=== PATIENT | female | born 1945 | race Caucasian/White ===

== ENCOUNTER 2021-03-01 19:00 | Inpatient (IN) | payer MEDICARE, OTHER ==
[~2021-03-01] VITALS: Ht 162.6 cm; Wt 74.8 kg
--- NOTE | 2021-03-01 19:06 | NUR ---
PT AAOX4. AMBULATORY WITH STEADY GAIT. HA BROWN FROM [facility] PRIOR TO GPS ADMISSION. PT CURRENTLY ON A HOLD SINCE [phone] FOR MAKING VERBAL THREATS TOWARDS HER DOCTOR. PT PLACED IN GOWN,ON MONITOR, AND PULSE OX. BELONINGS PLACED IN LOCKER. PT REFUSING BLOOD WORK.
--- NOTE | 2021-03-01 19:34 | NUR ---
REFUSING EKG, ER MD AWARE. REFUSING TO ANSWER QUESTIONS.
--- NOTE | 2021-03-01 19:34 | NUR ---
COVID SWABBED, SENT TO LAB. REFUSING BLOOD WORK AND URINE. ER AWARE.
--- NOTE | 2021-03-01 20:03 | NUR ---
LAB CALLED REGARDING NEGATIVE COVID RESULT.
--- NOTE | 2021-03-01 20:51 | NUR ---
REPORT GIVEN TO LILIYA PIERRE FOR NEGRO
[2021-03-01 21:20] VITALS: BP 157/76
[2021-03-01] MEDS ORDERED: ONDANSETRON HCL/PF 4 MG/2 ML VIAL IVP PRN (21:30)
[2021-03-01] MEDS ORDERED: MAG HYDROX/AL HYDROX/SIMETH 30 ML UDC PO PRN (21:30)
[2021-03-01] MEDS ORDERED: ZOLPIDEM TARTRATE 5 MG TABLET PO PRN (21:30)
[2021-03-01] MEDS ORDERED: MAGNESIUM HYDROXIDE 30 ML UDC PO PRN (21:30)
[2021-03-01] MEDS ORDERED: ACETAMINOPHEN 325 MG TABLET PO PRN (21:30)
[2021-03-01] MEDS ORDERED: Z GUARD REMEDY 2 OZ OINT TP PRN (21:30)
[2021-03-01] MEDS ORDERED: HYDROCODONE/APAP 5/325MG TABLET PO PRN (21:30)
--- NOTE | 2021-03-02 05:12 | NUR ---
ENDING NOTES: NONCOOPERATIVE >REFUSING TELE MONITOR >SKIN CHECK >WHEN ASK ADMITTING QUESTION SOME SHE WOULD ANSWER AND OTHER SHE WOULD JUST STARE AT ME NOT ANSWERING > WILL NOT CALL FOR ASSIST WHEN GETTING OOB, SITTER AT THE BEDSIDE THIS 12 HOURS ORDERED FOR SAFETY AND BED ALARM ON >REFUSED SCD'S NOT LISTENING WHEN EXPLAIN HOW BENEFICAL WEARING THEM IS >REFUSED TO ALLOW NURSE AND EMERGENCY PHYSICIAN TO GO THROUGH HER BELONGINGS SHE IS ALERT AND ORIENTATED X4 SPEECH CLEAR > SUGGESTED SHE WEAR THE TELE MONITOR AGAIN THIS AM SO THE MD COULD SEE WHAT HER HEART IS DOING...SHE GAVE NO ANSWER AND JUST STARED AT ME NOT APPLIED! NOTED LOWER AND UPPER EYELIDS RED
--- NOTE | 2021-03-02 07:10 | NUR ---
TELERN NOTES: RECEIVED PATIENT ON JUSTO ALERT ADN COHERENT WITH NO SIGNS OF DISTRESS. ON MODERATE TO HIGH BACK REST. COMFORT MEASURES PROVIDED. PATIENT ADMITTED WITH PRIMARY DIAGNOSIS OF PSYCHOSIS AND HAVE BEEN REFUSING ALL MEDICATIONS AND ALL DIAGNOSTIC PROCEDURES AND SKIN CHECK, MD AWARE. PATIENT IS CONTINENT OF BOWEL AND BLADDER AND ABLE TO AMBULATE WITH ASSIST TO AND FROM THE BATHROOM. PATIENT ABLE TO FOLLOW SIMPLE COMMANDS. WITH ALLERGY TO CODEINE. NOT IN DISTRESS. ENCOURAGED TO VERBALIZED NEEDS. NEEDS ATTENDED. PROVIDED WITH CALM AND QUIET ENVIRONMENT. COMFORT MEASURES PROVIDED. NOT IN DISTRESS.
[2021-03-02 08:00] VITALS: BP 145/60
[2021-03-02] MEDS ORDERED: ATOR20TA PO (08:07)
[2021-03-02] MEDS ORDERED: DIPH25TA62 PO (08:07)
[2021-03-02] MEDS ORDERED: CALC500T88 PO (08:07)
[2021-03-02] MEDS ORDERED: CHOL200013 PO (08:07)
[2021-03-02] MEDS ORDERED: DICL100G16 TP (08:07)
[2021-03-02] MEDS ORDERED: PRED5DRO4 LEFTEYE (08:07)
[2021-03-02] MEDS ORDERED: TIMO5SOL11 LEFTEYE (08:07)
[2021-03-02] MEDS ORDERED: ANAS1TAB50 PO (08:07)
[2021-03-02] MEDS ORDERED: ACET325T53 PO ×2 (08:07)
[2021-03-02] MEDS ORDERED: OLAN5TAB3 PO (08:07)
[2021-03-02] MEDS ORDERED: MULT-439 PO (08:07)
[2021-03-02 16:00] VITALS: BP 119/66
[2021-03-02] MEDS ORDERED: HALOPERIDOL DECANOATE IM 100 MG/ML AMPUL IM PRN ×2 (17:00→18:00)
[2021-03-02] MEDS ORDERED: OLANZAPINE 5 MG TABLET PO SCH (17:00)
--- NOTE | 2021-03-02 17:00 | NUR ---
RECEIVED TELEPHONE ORDERS AT THIS TIME FROM DR MATHEWS TO STOP ZYPREXA, ORDERS READ BACK AND CARRIED OUT. WILL CONTINUE WITH PLAN OF CARE.
--- NOTE | 2021-03-02 17:01 | NUR ---
RECEIVED TELEPHONE ORDERS AT THIS TIME FROM DR MATHEWS, FOR HALDOL 10MG PO QD6PM, IF PATIENT REFUSES ORAL HALDOL, ADMINISTER HALDOL 7.5MG IM PRN WITH COGENTIN 1MG IM. ORDERS READ BACK AND CARRIED OUT. WILL CONTINUE WITH PLAN OF CARE.
--- NOTE | 2021-03-02 17:30 | NUR ---
SEND PT'S NEUROLOGIST @ [facility] DR RIVERA ([phone]) INFRMATIONT TO DR LOVE. WILL CONTINUE WITH PLAN OF CARE
[2021-03-02] MEDS ORDERED: BENZTROPINE MESYLATE (2MG/2ML) 2 MG/2 ML AMPUL IM PRN (18:00)
[2021-03-02] MEDS ORDERED: HALOPERIDOL LACTATE INJ 5 MG/ML VIAL IM PRN (18:00)
[2021-03-02] MEDS: HALOPERIDOL 5 MG TABLET PO SCH (18:53)
--- NOTE | 2021-03-02 18:59 | NUR ---
MS RN CLOSING NOTES PT AWAKE IN BED AT THIS TIME. PT REMAINED STABLE THROUGHOUT SHIFT. ALL CARE, NEEDS, MEDICATIONS AND TREATMENT ADMINISTERED ANTICIPATED PER ORDER. PT KEPT CLEAN AND DRY. SAFETY PRECAUTIONS IN PLACE AND MAINTAINED AT ALL TIMES. BED IN LOWEST LOCKED POSITION, HOB ELEVATED, SIDE RAILS UPX2, CALL LIGHT AND TABLE WITHIN REACH. WILL ENDORSE TO FOLD SKIVER NURSE FOR NEGRO
--- NOTE | 2021-03-02 20:00 | NUR ---
MS RN OPENING NOTE RECEIVED PT AWAKE IN BED. A/O X3. PT IS STABLE ON ROOM AIR. NO SOB NOTED. NO S/S OF RESPIRATORY DISTRESS. PT IS AMBULATORY WITH STANDBY ASSIST. PT HAS NO C/O PAIN AT THIS TIME. PT REFUSED IV ACCESS. MD AWARE. SAFETY MEASURES MAINTAINED. BED IN LOWEST LOCKED POSITION, HOB ELEVATED, SIDE RAILS UP X2. CALL LIGHT AND TABLE WITHIN REACH. WILL CONTINUE WITH PLAN OF CARE.
--- NOTE | 2021-03-03 07:03 | NUR ---
MS RN OPENING NOTES RECEIVED PT AWAKE IN BED AT THIS TIME. AOX4. PT ABLE TO MAKE NEEDS. NO SOB NOTED, NO C/O PAIN AT THIS TIME, NO S/O OF ANY APPARENT DISTRESS NOTED. PT IS STABLE ON RA. PT NOTED WITH NO IV ACCESS IN PLACE, PER MODELING INSTRUCTOR NURSE, PT REFUSED IV INSERTION AND MD WAS MADE AWARE. ASPIRATION AND SAFETY PRECAUTIONS IN PLACE AND MAINTAINED AT ALL TIMES. BED IN LOWEST LOCKED POSITION, HOB ELEVATED, SIDE RAILS UP X2, CALL LIGHT AND TABLE WITHIN REACH. WILL CONTINUE TO MONITOR
--- NOTE | 2021-03-03 07:16 | NUR ---
MS RN CLOSING NOTE PT IS AWAKE IN BED AT THIS TIME. A/O X3. PT IS STABLE ON ROOM AIR. NO SOB NOTED. NO S/S OF RESPIRATORY DISTRESS. PT IS AMBULATORY WITH STANDBY ASSIST. PT HAS NO C/O PAIN AT THIS TIME. PT REFUSED IV ACCESS. MD AWARE. ALL NEEDS HAVE BEEN MET. SAFETY PRECAUTIONS MAINTAINED AT ALL TIMES. BED IN LOWEST LOCKED POSITION, HOB ELEVATED, SIDE RAILS UP X2. CALL LIGHT AND TABLE WITHIN REACH. WILL ENDORSE TO ONCOMING NURSE FOR CONTINUITY OF CARE
[2021-03-03] MEDS ORDERED: BENZTROPINE MESYLATE (2MG/2ML) 2 MG/2 ML AMPUL IM SCH (09:00)
--- NOTE | 2021-03-03 13:33 | NUR ---
RECEIVED ORDERS FROM DR. MATHEWS AT THIS TIME TO HAVE PT ON LPS CONSERVATORSHIP. ORDERS READ BACK AND CARRIED OUT. WILL CONTINUE WITH PLAN OF CARE.
[2021-03-03] MEDS: HALOPERIDOL 5 MG TABLET PO SCH (17:56)
--- NOTE | 2021-03-03 18:43 | NUR ---
MS RN CLOSING NOTES PT AWAKE IN BED AT THIS TIME. PT's CONDITION REMAINED UNCHANGED THROUGHOUT SHIFT. ALL CPT NEEDS ATTENDED TO. PT KEPT CLEAN AND DRY. SAFETY PRECAUTIONS IN PLACE AND MAINTAINED AT ALL TIMES. BED IN LOWEST LOCKED POSITION, HOB ELEVATED, SIDE RAILS UPX2, CALL LIGHT AND TABLE WITHIN REACH. WILL ENDORSE TO MEDICAL MALPRACTICE PARALEGAL NURSE FOR NEGRO
[2021-03-04 08:00] VITALS: BP 134/68
--- NOTE | 2021-03-04 08:00 | NUR ---
RECEIVED PT. THIS AM ALERT AND ORIENTED X 3-4.NO ACUTE DISTRESS.HAS 1:1 SITTER.
[2021-03-04 12:00] VITALS: BP 130/78
[2021-03-04 16:00] VITALS: BP 124/73
[2021-03-04] MEDS: HALOPERIDOL 5 MG TABLET PO SCH (17:58)
--- NOTE | 2021-03-04 18:00 | NUR ---
PT. REFUSING MOST TREATMENTS AND PROCEDURES.REFUSED HAVING TEMP TAKEN ALL DAY.TOOK HALDOL MED THIS GUIDO.
[2021-03-04 20:00] VITALS: BP 119/69
--- NOTE | 2021-03-04 20:00 | NUR ---
MS RN NOTE: 1909- received pt. awake on bed; alert and oriented x 4; on room air; on renal standard diet as ordered; with 1:1 sitter at bedside; safety precautions observed; siderails x 2 are up; bed alarm is on; call light is within reach;
--- NOTE | 2021-03-05 07:55 | NUR ---
MS RN OPENING NOTE RECEIVED PATIENT LYING IN BED, RESTING. EASY TO AROUSE. A/O X4. NO PAIN NOTED, NO DISTRESS NOTED. PATIENT IS STABLE ON ROOM AIR. NO IV ACCESS NOTED - PATIENT REFUSES IV INSERTION. SAFETY PRECAUTIONS IMPLEMENTED. CALL LIGHT WITHIN REACH. WILL CONTINUE TO MONITOR.
[2021-03-05] MEDS: HALOPERIDOL 5 MG TABLET PO SCH (17:38)
--- NOTE | 2021-03-05 18:29 | NUR ---
MS RN CLOSING NOTE PATIENT CURRENTLY LYING IN BED, RESTING. EASY TO AROUSE. A/O X4. NO PAIN NOTED, NO DISTRESS NOTED. PATIENT IS STABLE ON ROOM AIR. NO IV ACCESS NOTED - PATIENT REFUSES IV INSERTION. PATIENT TOOK HALDOL WITH NO PROBLEMS. PATIENT CALM AND COOPERATIVE THROUGHOUT SHIFT. SAFETY PRECAUTIONS IMPLEMENTED. CALL LIGHT WITHIN REACH. WILL ENDORSE TO BOX LOADER NURSE FOR NEGRO.
[2021-03-05 20:00] VITALS: BP 126/80
--- NOTE | 2021-03-05 20:00 | NUR ---
MS RN NOTE: 1910- received pt. awake on bed; alert and oriented x 4; on room air; on renal standard diet as ordered; with sitter at bedside noted; ( pt. is non-compliant on medications, IV insertions, treatments and procedures); siderails x 2 are up; bed alarm is on; call light is within reach;
[2021-03-06 08:00] VITALS: BP 126/72
--- NOTE | 2021-03-06 10:58 | NUR ---
KNITTER MECHANIC OF CARE NOTES RECEIVED PATIENT IN BED ALERT ORIENTED X 4.REPORT GIVEN BY ALLYSSA PIERRE. NO ACUTE DISTRESS NOTED , BREATHING UNLABORED. SAFETY MEASURES IN PLACE. CALL LIGHT WITHIN REACH. WILL CONTINUE TO MONITOR ACCORDINGLY.
--- NOTE | 2021-03-06 14:20 | NUR ---
MS RN NOTES PATIENT DISCHARGE TO [facility] ROOM 219 B, REPORT GIVEN TO FRED PIERRE. PATIENT ALERT ORIENTED X 3. NO ACUTE DISTRESS NOTED . BREATHING UNLABORED. DISCHARGE INSTRUCTIONS GIVEN TO THE PATIENT AND RN FRED, VERBALIZED UNDERSTANDING. ALL BELONGINGS TAKEN WITH THE PATIENT TO [facility]. SKIN IS INTACT. WHEELED TO [facility] , PATIENT RECEIVED BY FRED PIERRE IN STABLE CONDITION.
--- NOTE | 2021-03-06 14:20 | NUR ---
MS PIERRE NOTES PATIENT DISCHARGE TO [facility] ROOM 219 B, REPORT GIVEN TO FRED PIERRE. PATIENT ALERT ORIENTED X 3. NO ACUTE DISTRESS NOTED . BREATHING UNLABORED. IV ACCESS REMOVED, NO REDNESS, NO SWELLING NOTED. DISCHARGE INSTRUCTIONS GIVEN TO THE PATIENT AND IGNACIO IBARRA, VERBALIZED UNDERSTANDING. ALL BELONGINGS TAKEN WITH THE PATIENT TO [facility]. SKIN IS INTACT. WHEELED TO THE [facility] , PATIENT RECEIVED BY FRED PIERRE IN STABLE CONDITION. Addendum: 03/06/21 at 2006 by KEELY ARREDONDO RN DISREGARD ABOVE NOTES- ERROR
[2021-03-06] MEDS ORDERED: BENZ2AMP3 IM (15:40)
[2021-03-06] MEDS ORDERED: MAGN400O6 PO (15:40)
[2021-03-06] MEDS ORDERED: ALLA266C2 TP (15:40)
[2021-03-06] MEDS ORDERED: HALO5VIA9 IM (15:40)
[2021-03-06] MEDS ORDERED: ZOLP5TAB8 PO (15:40)
[2021-03-06] MEDS ORDERED: HYDR-4209 PO (15:40)
[2021-03-06] MEDS ORDERED: MAG30ORA PO (15:40)
[2021-03-06] MEDS ORDERED: HALO5TAB8 PO (15:40)
== END 2021-03-06 13:50 | DRG 885 ==
LOC: ER 19:27 → TELE 20:44 → MED 03-02 11:55
PROVIDERS: ADMIT Student in an Organized Health Care Education/Training Program; ATTEND Internal Medicine
DX: F20.0 Paranoid schizophrenia (principal); F29 Unspecified psychosis not due to a substance or known physiological condition; M79.7 Fibromyalgia; E78.5 Hyperlipidemia, unspecified; Z85.3 Personal history of malignant neoplasm of breast; Z91.19 Patient's noncompliance with other medical treatment and regimen; Z73.6 Limitation of activities due to disability; F01.50 Vascular dementia, unspecified severity, without behavioral disturbance, psychotic disturbance, mood disturbance, and anxiety; N18.30 Chronic kidney disease, stage 3 unspecified
CPT/HCPCS: 87081-TC; C9803; G0378

== ENCOUNTER 2021-03-06 14:07 | Inpatient (IN) | payer MEDICARE, OTHER ==
[~2021-03-06] VITALS: Ht 167.6 cm; Wt 82.1 kg
[~2021-03-06 14:07] MED LIST: ACET325T53 PO; ANAS1TAB50 PO; ATOR20TA PO; CALC500T88 PO; CHOL200013 PO; DICL100G16 TP; DIPH25TA62 PO; MULT-439 PO; OLAN5TAB3 PO; PRED5DRO4 LEFTEYE; TIMO5SOL11 LEFTEYE
--- NOTE | 2021-03-06 14:25 | NUR ---
RN NOTE- PT ADMITTED TO GPS FOR PSYCHOSIS. PT IS CONSERVED . PT BROUGHT IN AMBULATORY BY HOSPITAL STAFF. ON FACE O FACE ASSESSMENT, PT IS ALERT ORIENTED TO PERSON PACE CONFUSED ANGRY AND OPPOSITIONAL TO VS, ACCU CHECK, ALL MEDS, CARE AND QUESTIONS. PT IS 5'6' AND 124 POUNDS. SHE HAS ALLERGIES TO CODEINE. SHE IS FULL CODE. PT REFUSED TO ANSWER QUESTIONS. HX PULLED FROM PAST HOSPITALIZATION PAPERWORK . PMHX INCLUDES SCHIZOPHRENIA, HYPERLIPIDEMIA, FIBROMYALGIA, KIDNEY DISEASE STAGE 3, BREAST CA, SHES ON A RENAL DIET. PT PAANOID AND ANGRY. REFUSES ALL VACCS. REFUSES PHOTO FOR CHART. VALUABLES LOCKED UP, ORIENTATION TO UNIT DONE. DR MATHEWS NOTIFIED OF ADMIT. ORDERS RECEIVED. COMPLIED.
[2021-03-06] MEDS ORDERED: MAG HYDROX/AL HYDROX/SIMETH 30 ML UDC PO PRN ×2 (14:30→17:30)
[2021-03-06] MEDS ORDERED: BLOOD SUGAR DIAGNOSTIC 1 EACH STRIP IN ONE (14:30)
[2021-03-06] MEDS ORDERED: TEMAZEPAM 7.5 MG CAPSULE PO PRN (14:30)
[2021-03-06] MEDS ORDERED: LORAZEPAM 0.5 MG TABLET PO PRN (14:30)
[2021-03-06] MEDS ORDERED: MAGNESIUM HYDROXIDE 30 ML UDC PO PRN ×2 (14:30→17:30)
[2021-03-06] MEDS ORDERED: ACETAMINOPHEN 325 MG TABLET PO PRN ×2 (14:30→17:30)
[2021-03-06] MEDS ORDERED: MAG30ORA PO (15:40)
[2021-03-06] MEDS ORDERED: HALO5VIA9 IM (15:40)
[2021-03-06] MEDS ORDERED: HYDR-4209 PO (15:40)
[2021-03-06] MEDS ORDERED: HALO5TAB8 PO (15:40)
[2021-03-06] MEDS ORDERED: ALLA266C2 TP (15:40)
[2021-03-06] MEDS ORDERED: MAGN400O6 PO (15:40)
[2021-03-06] MEDS ORDERED: BENZ2AMP3 IM (15:40)
[2021-03-06] MEDS ORDERED: ZOLP5TAB8 PO (15:40)
[2021-03-06] MEDS ORDERED: Z GUARD REMEDY 2 OZ OINT TP PRN (17:30)
[2021-03-06] MEDS ORDERED: BENZTROPINE MESYLATE (2MG/2ML) 2 MG/2 ML AMPUL IM PRN (17:30)
[2021-03-06] MEDS ORDERED: HYDROCODONE/APAP 5/325MG TABLET PO PRN (17:30)
[2021-03-06] MEDS ORDERED: HALOPERIDOL 5 MG TABLET PO SCH (18:00)
[2021-03-06 20:00] VITALS: BP 124/67
[2021-03-06] MEDS: prednisoLONE ACET 1% OPHT DROP 5 ML BOTTLE LEFTEYE SCH (21:00)
[2021-03-06] MEDS: ATORVASTATIN 10 MG TABLET PO SCH (22:00)
--- NOTE | 2021-03-07 06:00 | NUR ---
RN NOTES: NIGHT MEDS REFUSED PATIENT REFUSED ALL NIGHT MEDICATION AND CARE. ENCOURAGED X3 , EDUCATION PROVIDED ON THE IMPORTANCE OF MEDICATION COMPLIANCE. WILL CONTINUE TO MONITOR.
--- NOTE | 2021-03-07 08:30 | NUR ---
RN NOTES: VITAL SIGNS REFUSED PATIENT REFUSED VITAL SIGNS , ENCOURAGED X3 , EDUCATION PROVIDED ON THE IMPORTANCE OF VITAL SIGNS , PER PT. I DONT NEED TO CHECK VITAL SIGNS. WILL CONTINUE TO MONITOR.
[2021-03-07] MEDS: TIMOLOL -XE 0.5% 5 ML BOTTLE LEFTEYE SCH (08:32)
[2021-03-07] MEDS: ANASTROZOLE 1 MG TABLET PO SCH (08:32)
[2021-03-07] MEDS: prednisoLONE ACET 1% OPHT DROP 5 ML BOTTLE LEFTEYE SCH ×4 (08:32→21:42)
[2021-03-07] MEDS: CALCIUM CARBONATE (1250) 500 MG TABLET PO SCH ×2 (08:32→16:47)
[2021-03-07] MEDS: CHOLECALCIFEROL 1,000 UNIT TABLET (VIT D3) PO SCH ×2 (08:33→16:47)
[2021-03-07] MEDS: MULTIVIT W/MINERALS 1 TAB TABLET PO SCH (08:33)
--- NOTE | 2021-03-07 09:00 | NUR ---
RN NOTES: AM LABS REFUSED PATIENT REFUSED DRAW AM LABS, ENCOURAGED X3 , EDUCATION PROVIDED ON THE IMPORTANCE OF LABS . PT. STRONGLY REFUSED ,WILL CONTINUE TO MONITOR.
--- NOTE | 2021-03-07 12:11 | NUR ---
RN NOTES : RECIVED CALL FROM PHARMACY, PENDING HALDOL PO ORDERS , HALDOL PO ORDERS BY MEDICAL DR. REICH, MUST BE ORDER BY PSYCH , AND NOTIFIED CHARGE NURSE , PER CHARGE GOLDIE SHE WILL INFORMED PSYCH .
--- NOTE | 2021-03-07 13:03 | NUR ---
RN NOTES: AM MEDS REFUSED PATIENT REFUSED ALL SCHEDULE MEDS, ENCOURAGED X3 , EDUCATION PROVIDED ON THE IMPORTANCE OF MEDICATION COMPLIANCE. WILL CONTINUE TO MONITOR.
[2021-03-07 16:00] VITALS: BP 150/99
--- NOTE | 2021-03-07 16:43 | NUR ---
RN NOTES: PM MEDS REFUSED PATIENT REFUSED ALL PM SCHEDULE MEDS, ENCOURAGED X3 , EDUCATION PROVIDED ON THE IMPORTANCE OF MEDICATION COMPLIANCE. WILL CONTINUE TO MONITOR.
[2021-03-07 20:00] VITALS: BP 139/88
[2021-03-07] MEDS: ATORVASTATIN 10 MG TABLET PO SCH (22:00)
--- NOTE | 2021-03-07 22:36 | NUR ---
GPS RN NOTES: PATIENT REFUSED 2200 PM MED. EDUCATION PROVIDED ON THE IMPORTANCE OF MED COMPLIANCE. WILL CONTINUE TO MONITOR.
[2021-03-07] MEDS ORDERED: HALOPERIDOL LACTATE INJ 5 MG/ML VIAL IM PRN (23:00)
[2021-03-07] MEDS: HALOPERIDOL 5 MG TABLET PO SCH (23:10)
--- NOTE | 2021-03-08 06:49 | NUR ---
GPS RN CLOSING NOTES: PATIENT LAYING COMFORTABLY IN BED ASLEEP. PATIENT SLEPT 7HRS THIS SHIFT. NO S/S OF DISTRESS. RESPIRATION EVEN AND UNLABORED WITH EQUAL RISE AND FALL OF THE CHEST ON ROOM AIR. ALL PATIENT CARE NEEDS HAVE BEEN MET ANTICIPATED. BED IN LOWEST POSITION AND LOCKED. WILL CONTINUE TO MONITOR FOR SAFETY, MOOD AND BEHAVIOR AND ENDORSE TO AM SHIFT.
[2021-03-08 08:00] VITALS: BP 133/73
[2021-03-08] MEDS: CHOLECALCIFEROL 1,000 UNIT TABLET (VIT D3) PO SCH ×3 (08:49→17:00)
[2021-03-08] MEDS: MULTIVIT W/MINERALS 1 TAB TABLET PO SCH ×2 (08:49→09:00)
[2021-03-08] MEDS: CALCIUM CARBONATE (1250) 500 MG TABLET PO SCH ×3 (08:49→17:00)
[2021-03-08] MEDS: prednisoLONE ACET 1% OPHT DROP 5 ML BOTTLE LEFTEYE SCH ×4 (08:50→21:00)
[2021-03-08] MEDS: ANASTROZOLE 1 MG TABLET PO SCH ×2 (08:50→09:00)
[2021-03-08] MEDS: TIMOLOL -XE 0.5% 5 ML BOTTLE LEFTEYE SCH (09:00)
--- NOTE | 2021-03-08 09:00 | NUR ---
RN NOTE- PT REFUSES RX, CARE TX AND IS OPPOSITIONAL TO MOST EVERYTHING. PO INTAKE BETTER DIET CHANGED. NO BEHAVIORAL ISSUES
--- NOTE | 2021-03-08 09:28 | NUR ---
RN NOTE-TIMOLOL XE GTTS NOT AVAILABLE. NOTIFIED DIESEL PLANT OPERATOR BLADIMIR. AWAITING ORDER CHANGE
[2021-03-08] MEDS: TIMOLOL 0.5% SOLN OPHTH 5 ML BOTTLE LEFTEYE SCH (12:00)
[2021-03-08 16:00] VITALS: BP 126/75
--- NOTE | 2021-03-08 16:22 | NUR ---
Point of Contact: SW called & spoke with the pt.'s LPS Conservator, Samuel Garcia [phone] to gather collateral information. Per Samuel, the pt. has been conserved from 11/2019- present. Per Conservator, the pt has a Hx. of Schizophrenia and was experiencing homelessness at some point myra to being gravely disabled and was therefore conserved. SW called and spoke with admissions from [facility] [[address] [place] [id number] ] regarding pt.'s stating her name is Medina Charles. However, pt.'s facesheet says pt.'s name is Gely Barrios. Per BELEM from [facility], the pt. will use both names interchangeably. Per BELEM the pt. has in the past claimed one is her name and refuses the other and vise versa. Noted.
--- NOTE | 2021-03-08 16:28 | NUR ---
Initial Discharge plan: The pt. currently resides at [facility] [[address] [place] [address] ]. BELEM spoke with facility admissions department and they stated the pt. is not appropriate for their facility as she left AWOL. BELEM spoke to pt.'s conservator, Samuel Garcia regarding discharge planning. Per Conservator, he would like her to be placed in a locked facility due to pt. leaving AWOL. BELEM will continue to collaborate with IDT to ensure safe & proper discharge planning.
[2021-03-08] MEDS: HALOPERIDOL 5 MG TABLET PO SCH (17:06)
[2021-03-08 20:29] VITALS: BP 116/71
[2021-03-08] MEDS: ATORVASTATIN 10 MG TABLET PO SCH (22:00)
--- NOTE | 2021-03-09 06:45 | NUR ---
GPS RN CLOSING NOTES: PATIENT IS CURRENTLY SLEEPING. PATIENT SLEPT 8HRS THIS SHIFT. REFUSED PM MEDS THIS SHIFT. NO S/S OF DISTRESS. RESPIRATION EVEN AND UNLABORED WITH EQUAL RISE AND FALL OF THE CHEST ON ROOM AIR. ALL PATIENT CARE NEEDS HAVE BEEN MET ANTICIPATED. BED IN LOWEST POSITION AND LOCKED WITH SIDE RAILS UP X2. WILL CONTINUE TO MONITOR AND ENDORSE TO AM SHIFT
[2021-03-09 08:00] VITALS: BP 126/76
[2021-03-09] MEDS ORDERED: HALOPERIDOL DECANOATE IM 100 MG/ML AMPUL IM ONE (08:00)
[2021-03-09] MEDS: prednisoLONE ACET 1% OPHT DROP 5 ML BOTTLE LEFTEYE SCH ×4 (08:22→21:00)
[2021-03-09] MEDS: ANASTROZOLE 1 MG TABLET PO SCH (08:22)
[2021-03-09] MEDS: TIMOLOL 0.5% SOLN OPHTH 5 ML BOTTLE LEFTEYE SCH (08:22)
[2021-03-09] MEDS: MULTIVIT W/MINERALS 1 TAB TABLET PO SCH (08:23)
[2021-03-09] MEDS: CHOLECALCIFEROL 1,000 UNIT TABLET (VIT D3) PO SCH ×2 (08:23→16:23)
[2021-03-09] MEDS: CALCIUM CARBONATE (1250) 500 MG TABLET PO SCH ×2 (08:23→16:23)
--- NOTE | 2021-03-09 10:11 | NUR ---
RN-CO: HALDOL DECANOATE IM GIVEN AT 0800.
--- NOTE | 2021-03-09 13:38 | NUR ---
Group Note: SW encouraged the pt to attend group therapy on 03/09/21 at 1pm regarding the topic of discharge planning and the pt refused to attend. Pt has been isolative and resistant to care. SW conducted an individual intervention at bedside as she refused to attend group. Pt stated that she has some issues being in the hospital and that she will discharged "away from here." Pt refused to state where she would be discharged to and stated that the MD was trying to give her a shot for schizophrenia when she is not schizophrenic. Pt appeared to be paranoid regarding her treatment and appeared to be guarded with the SW.
[2021-03-09 16:00] VITALS: BP 117/72
[2021-03-09] MEDS: HALOPERIDOL 5 MG TABLET PO SCH (17:02)
[2021-03-09 19:49] VITALS: BP 140/77
[2021-03-09 20:01] VITALS: BP 140/77
[2021-03-09] MEDS: ATORVASTATIN 10 MG TABLET PO SCH (22:00)
--- NOTE | 2021-03-09 22:18 | NUR ---
RN NOTE: MEDICINE REFUSAL PATIENT REFUSED PREDNISOLONE EYE DROPS AT 2100 & LIPITOR 20 MG AT 2200 X 3 DESPITE OF RISKS & BENEFIT EXPLANATIONS. PT. IS NON COMPLAINT & UNCOOPERATIVE WITH MEDS & CARE.
[2021-03-10 08:00] VITALS: BP 114/69
[2021-03-10] MEDS: prednisoLONE ACET 1% OPHT DROP 5 ML BOTTLE LEFTEYE SCH ×4 (09:00→21:00)
[2021-03-10] MEDS: ANASTROZOLE 1 MG TABLET PO SCH (09:00)
[2021-03-10] MEDS: CHOLECALCIFEROL 1,000 UNIT TABLET (VIT D3) PO SCH ×2 (09:00→17:00)
[2021-03-10] MEDS: MULTIVIT W/MINERALS 1 TAB TABLET PO SCH (09:00)
[2021-03-10] MEDS: CALCIUM CARBONATE (1250) 500 MG TABLET PO SCH ×2 (09:00→17:00)
[2021-03-10] MEDS: TIMOLOL 0.5% SOLN OPHTH 5 ML BOTTLE LEFTEYE SCH (09:00)
--- NOTE | 2021-03-10 09:10 | NUR ---
RN-NOTES PATIENT REFUSED ALL 0900AM MEDICATIONS DESPITE EXPLANATIONS RISK AND BENEFITS. PATIENT GETS ARGUMENTATIVE AND IRRITABLE. OFFERED X3
--- NOTE | 2021-03-10 12:57 | NUR ---
SNF Referral: BELEM faxed a referral to [facility] with attn to Rosalina to the fax number: [phone].
--- NOTE | 2021-03-10 12:58 | NUR ---
Conservator Contact: SW called pt's LPS Conservator, Samuel Garcia ([phone]), and discussed the potential placement of [facility]. Pts conservator approved the placement and SW stated that she will send a referral. SW stated that she will keep him updated.
[2021-03-10 16:00] VITALS: BP 113/67
[2021-03-10] MEDS: HALOPERIDOL 5 MG TABLET PO SCH (17:12)
--- NOTE | 2021-03-10 17:17 | NUR ---
RN-NOTES PATIENT REFUSED MOST OF 1700 MEDICATIONS EXCEPT HALDOL 10MG P.O.OFFERED X3.
[2021-03-10 20:01] VITALS: BP 119/72
[2021-03-10] MEDS: ATORVASTATIN 10 MG TABLET PO SCH (21:12)
--- NOTE | 2021-03-10 21:47 | NUR ---
GPS-RN NOTE: MEDICATION REFUSAL PATIENT REFUSED LIPITOR AND PRED FORTE OPHTHALMIC DROP AT 2100. EDUCATED PATIENT REGARDING MEDICATION COMPLIANCE BUT PATIENT CONTINUED TO REFUSE. OFFERED X3. WILL CONTINUE TO MONITOR.
[2021-03-11 08:00] VITALS: BP 119/68
[2021-03-11] MEDS: prednisoLONE ACET 1% OPHT DROP 5 ML BOTTLE LEFTEYE SCH ×4 (09:00→21:00)
[2021-03-11] MEDS: ANASTROZOLE 1 MG TABLET PO SCH (09:00)
[2021-03-11] MEDS: CHOLECALCIFEROL 1,000 UNIT TABLET (VIT D3) PO SCH ×2 (09:00→17:00)
[2021-03-11] MEDS: CALCIUM CARBONATE (1250) 500 MG TABLET PO SCH ×2 (09:00→17:00)
[2021-03-11] MEDS: TIMOLOL 0.5% SOLN OPHTH 5 ML BOTTLE LEFTEYE SCH (09:00)
[2021-03-11] MEDS: MULTIVIT W/MINERALS 1 TAB TABLET PO SCH (09:00)
--- NOTE | 2021-03-11 09:51 | NUR ---
RN-NOTES PATIENT REFUSED ALL 0900AM MEDICATIONS DESPITE EXPLANATIONS RISK AND BENEFITS. PATIENT GETS ARGUMENTATIVE AND IRRITABLE.STATED" YOU ALL KNOW THAT I DON'T TAKE ANY MEDICATIONS EXCEPT ONE IN THE EVENING". OFFERED X3
[2021-03-11 16:04] VITALS: BP 115/67
[2021-03-11] MEDS: HALOPERIDOL 5 MG TABLET PO SCH (17:22)
[2021-03-11 21:03] VITALS: BP 130/74
[2021-03-11] MEDS: ATORVASTATIN 10 MG TABLET PO SCH (21:25)
[2021-03-12 08:00] VITALS: BP 119/69
[2021-03-12] MEDS: TIMOLOL 0.5% SOLN OPHTH 5 ML BOTTLE LEFTEYE SCH ×2 (09:00→09:51)
[2021-03-12] MEDS: prednisoLONE ACET 1% OPHT DROP 5 ML BOTTLE LEFTEYE SCH ×5 (09:00→21:00)
[2021-03-12] MEDS: CHOLECALCIFEROL 1,000 UNIT TABLET (VIT D3) PO SCH ×3 (09:00→17:00)
[2021-03-12] MEDS: MULTIVIT W/MINERALS 1 TAB TABLET PO SCH ×2 (09:00→09:49)
[2021-03-12] MEDS: ANASTROZOLE 1 MG TABLET PO SCH ×2 (09:00→09:51)
[2021-03-12] MEDS: CALCIUM CARBONATE (1250) 500 MG TABLET PO SCH ×3 (09:00→17:00)
[2021-03-12 16:00] VITALS: BP 131/67
[2021-03-12] MEDS: HALOPERIDOL 5 MG TABLET PO SCH (18:18)
[2021-03-12 20:00] VITALS: BP 147/75
[2021-03-12] MEDS: ATORVASTATIN 10 MG TABLET PO SCH (22:00)
[2021-03-13 08:00] VITALS: BP 131/62
[2021-03-13] MEDS: ANASTROZOLE 1 MG TABLET PO SCH (08:35)
[2021-03-13] MEDS: CALCIUM CARBONATE (1250) 500 MG TABLET PO SCH ×2 (08:35→16:48)
[2021-03-13] MEDS: MULTIVIT W/MINERALS 1 TAB TABLET PO SCH (08:35)
[2021-03-13] MEDS: CHOLECALCIFEROL 1,000 UNIT TABLET (VIT D3) PO SCH ×2 (08:35→16:48)
[2021-03-13] MEDS: TIMOLOL 0.5% SOLN OPHTH 5 ML BOTTLE LEFTEYE SCH (08:35)
[2021-03-13] MEDS: prednisoLONE ACET 1% OPHT DROP 5 ML BOTTLE LEFTEYE SCH ×4 (08:35→21:00)
[2021-03-13 16:00] VITALS: BP 128/70
[2021-03-13] MEDS: HALOPERIDOL 5 MG TABLET PO SCH (17:10)
[2021-03-13 20:00] VITALS: BP 118/70
[2021-03-13] MEDS: ATORVASTATIN 10 MG TABLET PO SCH (21:19)
--- NOTE | 2021-03-13 22:30 | NUR ---
RN NOTE: MEDICINE REFUSAL PATIENT REFUSED PREDNISOLONE EYE DROPS AT 2100 & LIPITOR 20 MG AT 2200 X 3 ENCOURAGED DESPITE OF RISKS & BENEFIT EXPLANATIONS. PT. IS NON COMPLAINT & UNCOOPERATIVE WITH MEDS & CARE, WILL CONTINUE TO MONITOR.
[2021-03-14 08:00] VITALS: BP 123/69
[2021-03-14] MEDS: ANASTROZOLE 1 MG TABLET PO SCH (08:51)
[2021-03-14] MEDS: CALCIUM CARBONATE (1250) 500 MG TABLET PO SCH ×2 (08:51→16:17)
[2021-03-14] MEDS: MULTIVIT W/MINERALS 1 TAB TABLET PO SCH (08:51)
[2021-03-14] MEDS: prednisoLONE ACET 1% OPHT DROP 5 ML BOTTLE LEFTEYE SCH ×4 (08:51→21:00)
[2021-03-14] MEDS: TIMOLOL 0.5% SOLN OPHTH 5 ML BOTTLE LEFTEYE SCH (08:51)
[2021-03-14] MEDS: CHOLECALCIFEROL 1,000 UNIT TABLET (VIT D3) PO SCH ×2 (08:51→16:17)
--- NOTE | 2021-03-14 08:58 | NUR ---
GPS STITCH RUBBER: NOTES PT REFUSED AM MEDS, PT IS ON RIESE, STATED, "I WILL TAKE MY HALDOL THIS EVENING."
[2021-03-14 16:00] VITALS: BP 114/64
--- NOTE | 2021-03-14 16:00 | NUR ---
gps lab director: psych f/u dr. hogan on facetime with pt, pt verbalized wanting to go home and will discuss it with social services technician as stated.
[2021-03-14] MEDS: HALOPERIDOL 5 MG TABLET PO SCH (17:09)
[2021-03-14 20:00] VITALS: BP 122/68
--- NOTE | 2021-03-14 21:00 | NUR ---
RN notes Pt refused temperature check. Offered multiple times. Explained risks and benefits. Pt keep refusing. Will continue to monitor.
[2021-03-14] MEDS: ATORVASTATIN 10 MG TABLET PO SCH (21:17)
--- NOTE | 2021-03-14 21:18 | NUR ---
RN notes Pt refused 2100 meds and 2200 meds. Offered multiple times. Pt keep refusing. Explained risks and benefits. Pt keep refusing. Will continue to monitor.
[2021-03-15 08:00] VITALS: BP 127/66
[2021-03-15] MEDS: TIMOLOL 0.5% SOLN OPHTH 5 ML BOTTLE LEFTEYE SCH (09:00)
[2021-03-15] MEDS: ANASTROZOLE 1 MG TABLET PO SCH (09:00)
[2021-03-15] MEDS: CHOLECALCIFEROL 1,000 UNIT TABLET (VIT D3) PO SCH ×2 (09:00→17:00)
[2021-03-15] MEDS: CALCIUM CARBONATE (1250) 500 MG TABLET PO SCH ×2 (09:00→17:00)
[2021-03-15] MEDS: MULTIVIT W/MINERALS 1 TAB TABLET PO SCH (09:00)
[2021-03-15] MEDS: prednisoLONE ACET 1% OPHT DROP 5 ML BOTTLE LEFTEYE SCH ×4 (09:00→21:00)
--- NOTE | 2021-03-15 10:38 | NUR ---
REFUSED ALL AM MEDS.
[2021-03-15 16:00] VITALS: BP 127/76
--- NOTE | 2021-03-15 16:29 | NUR ---
STATES NOT INTERESTED IN ANY MEDS EXCEPT HALDOL.
[2021-03-15] MEDS: HALOPERIDOL 5 MG TABLET PO SCH (18:16)
[2021-03-15 20:39] VITALS: BP 131/70
[2021-03-15] MEDS: ATORVASTATIN 10 MG TABLET PO SCH (22:00)
--- NOTE | 2021-03-15 22:07 | NUR ---
GPS RN NOTES: PATIENT REFUSED 2100 PRED FORT OPHT DROP/1ML, AND 2200 LIPITOR 10MG. EDUCATION PROVIDED ON THE IMPORTANCE OF MED COMPLIANCE. WILL CONTINUE TO MONITOR.
--- NOTE | 2021-03-16 07:02 | NUR ---
GPS RN CLOSING NOTES: PATIENT IS CURRENTLY SLEEPING. PATIENT SLEPT 8HRS THIS SHIFT. NO S/S OF DISTRESS. RESPIRATION EVEN AND UNLABORED WITH EQUAL RISE AND FALL OF THE CHEST ON ROOM AIR. PATIENT REFUSED ALL MEDS THIS SHIFT. BED IN LOWEST POSITION AND LOCKED WITH SIDE RAILS UP X2. WILL CONTINUE TO MONITOR FOR SAFETY, MOOD AND BEHAVIOR AND ENDORSE TO AM SHIFT.
[2021-03-16] MEDS: prednisoLONE ACET 1% OPHT DROP 5 ML BOTTLE LEFTEYE SCH ×4 (08:50→21:00)
[2021-03-16] MEDS: ANASTROZOLE 1 MG TABLET PO SCH (08:50)
[2021-03-16] MEDS: MULTIVIT W/MINERALS 1 TAB TABLET PO SCH (08:50)
[2021-03-16] MEDS: TIMOLOL 0.5% SOLN OPHTH 5 ML BOTTLE LEFTEYE SCH (08:50)
[2021-03-16] MEDS: CALCIUM CARBONATE (1250) 500 MG TABLET PO SCH ×2 (08:50→16:27)
[2021-03-16] MEDS: CHOLECALCIFEROL 1,000 UNIT TABLET (VIT D3) PO SCH ×2 (08:51→16:27)
--- NOTE | 2021-03-16 11:17 | NUR ---
SNF Contact: BELEM contacted Rosalina from [facility] and informed her that the pt will be discharged to their facility tomorrow if a bed is available.
--- NOTE | 2021-03-16 14:03 | NUR ---
Conservator Contact: SW informed pt's LPS conservator, Pato Garcia ([phone]) that the pt will be discharged to [facility] ([address] [place] [address]; [phone]).
[2021-03-16 16:00] VITALS: BP 121/71
[2021-03-16] MEDS: HALOPERIDOL 5 MG TABLET PO SCH (16:26)
[2021-03-16 20:28] VITALS: BP 126/66
[2021-03-16] MEDS: ATORVASTATIN 10 MG TABLET PO SCH (22:00)
--- NOTE | 2021-03-16 22:06 | NUR ---
GPS RN NOTES: PATIENT REFUSED 2100 PRED FORT OPHT DROP/1ML, AND 2200 LIPITOR 20MG. EDUCATION PROVIDED ON THE IMPORTANCE OF MED COMPLIANCE. WILL CONTINUE TO MONITOR.
--- NOTE | 2021-03-17 07:03 | NUR ---
GPS RN CLOSING NOTES: PATIENT IS CURRENTLY LAYING ON BED AWAKE, A/O 3X. PATIENT SLEPT 7HRS THIS SHIFT. PATIENT REFUSED ALL PM MEDS THIS SHIFT. COVID-19 NASAL SWAB FOR PLACEMENT COLLECTED AND TAKEN TO LAB. NO S/S OF DISTRESS. RESPIRATION EVEN AND UNLABORED WITH EQUAL RISE AND FALL OF THE CHEST ON ROOM AIR. THIS SHIFT. BED IN LOWEST POSITION AND LOCKED WITH SIDE RAILS UP X2. WILL CONTINUE TO MONITOR FOR SAFETY, MOOD AND BEHAVIOR AND ENDORSE TO AM SHIFT.
[2021-03-17 08:00] VITALS: BP 119/70
[2021-03-17] MEDS: CHOLECALCIFEROL 1,000 UNIT TABLET (VIT D3) PO SCH (09:00)
[2021-03-17] MEDS: CALCIUM CARBONATE (1250) 500 MG TABLET PO SCH (09:00)
[2021-03-17] MEDS: ANASTROZOLE 1 MG TABLET PO SCH (09:00)
[2021-03-17] MEDS: prednisoLONE ACET 1% OPHT DROP 5 ML BOTTLE LEFTEYE SCH ×2 (09:00→12:23)
[2021-03-17] MEDS: MULTIVIT W/MINERALS 1 TAB TABLET PO SCH (09:00)
[2021-03-17] MEDS: TIMOLOL 0.5% SOLN OPHTH 5 ML BOTTLE LEFTEYE SCH (09:00)
--- NOTE | 2021-03-17 09:29 | NUR ---
MS/RN NOTE ATTEMPTED TO GIVE MEDICATION. PATIENT REFUSED ALL MORNING MEDICATIONS.
--- NOTE | 2021-03-17 09:51 | NUR ---
SNF Contact: BELEM contacted Rosalina from [facility] to confirm the pts discharge. She stated that she is currently waiting on the DON to approve.
--- NOTE | 2021-03-17 12:24 | NUR ---
MS/RN NOTE OFFERED PATIENT 1300 MEDICATION, PATIENT REFUSED.
--- NOTE | 2021-03-17 13:20 | NUR ---
Discharge Note: Pt will be discharged to [facility] SNF located at [address] [place] [address] . Pt will be transported via [facility] at 1PM. Pts conservator, Pato Garcia ([phone]), has been notified of the pts discharge. Upon discharge, the pt appears to be in a euthymic mood and presents with a congruent affect. Pt appears to be alert and oriented x4 (time, place, self and situation). Pt denies both suicidal and homicidal ideation as well as auditory and visual hallucinations. Pt appears to be ambulatory with an unsteady gait. Pt appears to be well groomed and appropriately dressed. Pt will continue to be under the care of psychiatrist, Dr. Arellano, located at [address] [place] [address]; . Pt will be under the care of communications operator, Dr. Moran, located at [address] [place] [address]; . The choice of vendor form and multidisciplinary exit care form were done, printed, signed, and given to the patient.
--- NOTE | 2021-03-17 15:20 | NUR ---
MS/RN DISCHARGED PATIENT DISCHARGED TO [facility] SNF IN STABLE CONDITION. ALL PERSONAL BELONGINGS ACCOUNTED AND SIGNED OFF FOR IN BELONGINGS LIST. GAVE REPORT TO SNF RN HYDROMETEOROLOGIST, SANCHEZ. PATIENT AT TIME OF DISCHARGE DENIES BOTH SUICIDAL AND HOMICIDAL IDEATION WELL AUDITORY AND VISUAL HALLUCINATIONS. COPY OF DISCHARGE PAPERWORK/EXIT CARE PROVIDED TO [facility] FOR SNF FACILITY. PATIENT LEFT UNIT FLOOR IN STABLE CONDITION ACCOMPANIED BY TO [facility].
== END 2021-03-17 15:20 | DRG 885 ==
LOC: GPS 14:07
PROVIDERS: ADMIT Psychiatry & Neurology Psychiatry; ATTEND Family Medicine
DX: F20.0 Paranoid schizophrenia (principal); N18.30 Chronic kidney disease, stage 3 unspecified; F41.9 Anxiety disorder, unspecified; E78.5 Hyperlipidemia, unspecified; I12.9 Hypertensive chronic kidney disease with stage 1 through stage 4 chronic kidney disease, or unspecified chronic kidney disease; M79.7 Fibromyalgia; Z91.19 Patient's noncompliance with other medical treatment and regimen; Z87.891 Personal history of nicotine dependence; Z73.6 Limitation of activities due to disability; Z85.3 Personal history of malignant neoplasm of breast; Z20.822 Contact with and (suspected) exposure to COVID-19
CPT/HCPCS: J1631